=== PATIENT | male | born 1960 | race Two or more races ===

== ENCOUNTER → 2019-06-20 | Outpatient (CLI) | payer OTHER ==
[2019-06-20 18:40] LABS: POTASSIUM 3.7 mmol/L (3.5-5.1)
[2019-06-20 18:46] LABS: CALCIUM 8.3 mg/dL (8.5-10.1)
== END | disposition home or self-care (01) ==
LOC: SPEC 18:11 → EEVIPCON 18:11
DX: R07.9 Chest pain, unspecified (principal)
CPT/HCPCS: 36415; 80048; 84484

== ENCOUNTER → 2019-06-20 | Outpatient (CLI) | payer OTHER ==
[2019-06-20 10:31] LABS: ALBUMIN 3.8 g/dL (3.4-5.0); CALCIUM 8.7 mg/dL (8.5-10.1); TOTAL BILIRUBIN 0.6 mg/dL (0.2-1.0); TOTAL PROTEIN 7.6 g/dL (6.4-8.2)
[2019-06-20 10:41] LABS: BASO % 1 % (0-3); EOS # 0.1 x10^3/uL (0.0-0.7); EOS % 2 % (0-3); HEMATOCRIT 43.9 % (39.0-53.0); HEMOGLOBIN 15.1 g/dL (13.0-17.5); LYMPH # 1.4 x10^3/uL (1.0-4.8); LYMPH % 28 % (24-48); MEAN CORPUSCULAR HEMOGLOBIN 30 pg (25-35); MEAN CORPUSCULAR HGB CONC 35 g/dL (31-37); MEAN CORPUSCULAR VOLUME 87 fL (79-100); MONO # 0.4 x10^3/uL (0.0-1.1); MONO % 8 % (0-9); NEUT % 61 % (31-73); PLATELET COUNT 170 x10^3/uL (140-400); RED BLOOD COUNT 5.07 x10^6/uL (4.30-5.70); RED CELL DISTRIBUTION WIDTH 12.9 % (11.5-14.5); WHITE BLOOD COUNT 4.9 x10^3/uL (4.0-11.0)
== END | disposition home or self-care (01) ==
LOC: SPEC 10:05
PROVIDERS: ATTEND Family Medicine
DX: R07.9 Chest pain, unspecified (principal)
CPT/HCPCS: 36415; 80053; 84484; 85025